=== PATIENT | female | born 1960 | race Caucasian/White ===

== ENCOUNTER 2022-05-16 23:22 | Emergency (ER) | payer MEDICAID ==
[2022-05-17] MEDS ORDERED: Ondansetron 4 MG/2 ML SDV IVPUSH ONE (00:06)
[2022-05-17] MEDS ORDERED: HYDROmorphone 1 MG/ML Syringe IVPUSH STA (00:06)
[2022-05-17] MEDS ORDERED: Sodium Chloride 0.9% 1,000 ML IV SCH (00:15)
[2022-05-17] MEDS ORDERED: Sodium Chloride 0.9% 10 ML Syringe FLUSH ONE (00:56)
[2022-05-17] MEDS ORDERED: Iopamidol 612 MG/ML 100 ML Bottle IVPUSH ONE (00:56)
[2022-05-17] MEDS ORDERED: Sodium Chloride 0.9% 1,000 ML IV ONE (00:57)
[2022-05-17] MEDS ORDERED: Lactulose Soln 10 GM/15 ML 30 ML UD Cup PO ONE (02:37)
== END 2022-05-17 03:00 | disposition home or self-care (01) ==
LOC: JD.ED 23:22
DX: K59.00 Constipation, unspecified (principal); N17.9 Acute kidney failure, unspecified; R94.4 Abnormal results of kidney function studies; E10.9 Type 1 diabetes mellitus without complications
CPT/HCPCS: 36415; 74177; 80053; 81001; 83690; 85025; 96361; 96374; 99284; A9270; J2405; J3490; J7030; Q9967

== ENCOUNTER 2022-06-07 14:28 | Emergency (ER) | payer MEDICAID ==
[2022-06-07] MEDS ORDERED: Sodium Chloride 0.9% 10 ML Syringe FLUSH PRN (15:08)
== END 2022-06-07 17:25 | disposition home or self-care (01) ==
LOC: JD.ED 14:28
DX: K21.9 Gastro-esophageal reflux disease without esophagitis (principal); E10.9 Type 1 diabetes mellitus without complications
CPT/HCPCS: 36415; 71046; 74019; 80053; 83880; 84484; 85025; 85379; 86140; 93005; 99285; J3490; 93010; 99284

== ENCOUNTER 2024-07-31 21:01 | Emergency (ER) | payer MEDICAID ==
[2024-07-31 21:41] LABS: BASOPHILS PERCENT AUTO 0.5 % (0.0-1.0); EOSINOPHILS ABSOLUTE AUTO 0.2 K/mm3 (0.0-0.4); EOSINOPHILS PERCENT AUTO 3.2 % (0.0-6.0); HEMATOCRIT 35.9 % (37.0-47.0); HEMOGLOBIN 11.8 gm/dl (12.0-16.0); IMMATURE GRAN ABSOLUTE AUTO 0.03 K/mm3 (0.00-0.05); IMMATURE GRAN PERCENT AUTO 0.5 % (0.0-0.4); LYMPHOCYTES ABSOLUTE AUTO 1.5 K/mm3 (1.0-4.8); LYMPHOCYTES PERCENT AUTO 22.3 % (24.0-44.0); MEAN CORPUSCULAR HEMOGLOBIN 30.9 pg (28.0-32.0); MEAN CORPUSCULAR HGB CONC 32.9 g/dl (32.0-36.0); MEAN PLATELET VOLUME 9.8 fl (9.4-12.3); MONOCYTES ABSOLUTE AUTO 0.6 K/mm3 (0.0-0.8); MONOCYTES PERCENT AUTO 9.2 % (0.0-8.0); NEUTROPHILS ABSOLUTE AUTO 4.2 K/mm3 (1.8-7.7); NEUTROPHILS PERCENT AUTO 64.3 % (41.0-71.0); PLATELET COUNT,PLT 309 K/mm3 (150-400); RED BLOOD CELL COUNT 3.82 M/mm3 (4.10-5.30)
[2024-07-31 22:12] LABS: ALBUMIN 3.4 g/dl (3.4-5.0); ANION GAP 13.3 (5-15); BILIRUBIN TOTAL 0.3 mg/dL (0.2-1.0); BUN/CREATININE RATIO 20.7 (14-18); CALCIUM 8.7 mg/dL (8.5-10.1); CREATININE 1.4 mg/dL (0.55-1.02); EST CRCL DRUG DOSING (CG) 29.16 mL/min; POTASSIUM,K 4.3 mEq/L (3.5-5.1); PROTEIN TOTAL,TP 6.8 g/dl (6.4-8.2)
[2024-07-31 22:36] LABS: APPEARANCE,URINE CLEAR (Clear); BILIRUBIN,URINE NEGATIVE (Negative); COLOR,URINE YELLOW (Yellow); GLUCOSE,URINE 2+ (Negative); KETONES,URINE NEGATIVE (Negative); LEUKOCYTE ESTERASE,URINE NEGATIVE (Negative); NITRITE,URINE NEGATIVE (Negative); OCCULT BLOOD,URINE TRACE-INTACT (Negative); PROTEIN,URINE NEGATIVE (Negative); UROBILINOGEN,URINE 0.2 (0.2-1.0)
[2024-07-31 22:46] LABS: BACTERIA,URINE FEW /hpf (FEW); MUCUS,URINE FEW /hpf (FEW); RBC,URINE 0-5 /hpf (0-5); SQUAMOUS EPITHELIAL CELLS,UR 0-5 /hpf (0-5); WBC,URINE 0-5 /hpf (0-5)
== END 2024-07-31 22:51 | disposition home or self-care (01) ==
LOC: JD.ED 21:01
DX: K59.00 Constipation, unspecified (principal); E10.9 Type 1 diabetes mellitus without complications
CPT/HCPCS: 36415; 74176; 74176-26; 80053; 81001; 85025; 99283; 99284

== ENCOUNTER 2025-01-20 16:14 | Emergency (ER) | payer MEDICAID ==
[2025-01-20] MEDS: Ofloxacin 0.3% Ophth Soln 5 ML Bottle EARBOTH ONE (17:03)
== END 2025-01-20 17:36 | disposition home or self-care (01) ==
LOC: JD.ED 16:14
DX: H60.93 Unspecified otitis externa, bilateral (principal); H66.93 Otitis media, unspecified, bilateral; E10.65 Type 1 diabetes mellitus with hyperglycemia; Z79.899 Other long term (current) drug therapy
CPT/HCPCS: 82947; 99283; A9270

== ENCOUNTER 2025-01-25 10:43 | Emergency (ER) | payer MEDICAID | END 2025-01-25 12:05 | disposition home or self-care (01) | LOC: JD.ED 10:43 | DX: K52.9 Noninfective gastroenteritis and colitis, unspecified (principal); H65.03 Acute serous otitis media, bilateral; H60.503 Unspecified acute noninfective otitis externa, bilateral; E10.9 Type 1 diabetes mellitus without complications; Z79.899 Other long term (current) drug therapy; Z79.84 Long term (current) use of oral hypoglycemic drugs | CPT/HCPCS: 74018; 74018-26; 99284 ==

== ENCOUNTER 2025-01-29 15:22 | Emergency (ER) | payer MEDICAID ==
[2025-01-29] MEDS: 50% Dextrose in Water 50 ML Syringe IVPUSH ONE (15:34)
[2025-01-29 16:51] LABS: BASOPHILS ABSOLUTE AUTO 0.1 K/mm3 (0.0-0.2); BASOPHILS PERCENT AUTO 0.4 % (0.0-1.0); EOSINOPHILS ABSOLUTE AUTO 0.1 K/mm3 (0.0-0.4); EOSINOPHILS PERCENT AUTO 0.7 % (0.0-6.0); IMMATURE GRAN ABSOLUTE AUTO 0.14 K/mm3 (0.00-0.05); IMMATURE GRAN PERCENT AUTO 1.0 % (0.0-0.4); LYMPHOCYTES ABSOLUTE AUTO 1.6 K/mm3 (1.0-4.8); LYMPHOCYTES PERCENT AUTO 11.4 % (24.0-44.0); MEAN PLATELET VOLUME 10.1 fl (9.4-12.3); MONOCYTES ABSOLUTE AUTO 0.9 K/mm3 (0.0-0.8); MONOCYTES PERCENT AUTO 6.4 % (0.0-8.0); NEUTROPHILS ABSOLUTE AUTO 11.4 K/mm3 (1.8-7.7); NEUTROPHILS PERCENT AUTO 80.1 % (41.0-71.0); NRBC ABSOLUTE 0.00 (0.00-0.02); NRBC PERCENT 0.0 % (0.0-0.2); PLATELET COUNT,PLT 352 K/mm3 (150-400); RED BLOOD CELL COUNT 4.35 M/mm3 (4.10-5.30); WHITE BLOOD CELL COUNT,WBC 14.27 K/mm3 (3.9-11.3)
[2025-01-29 17:09] LABS: A/G RATIO 1.0 (1-2); ALANINE AMINOTRANSFERASE,ALT 17 U/L (14-59); ASPARTATE AMNIOTRANSFERASE,AST 15 U/L (15-37); BILIRUBIN TOTAL 0.3 mg/dL (0.2-1.0); BLOOD UREA NITROGEN,BUN 45 mg/dL (7-18); CARBON DIOXIDE,CO2 20 mEq/L (21-32); CHLORIDE,CL 108 mEq/L (98-107); PROTEIN TOTAL,TP 7.7 g/dl (6.4-8.2); SODIUM,NA 144 mEq/L (136-145)
[2025-01-29 17:15] LABS: POTASSIUM,K 4.9 mEq/L (3.5-5.1)
[2025-01-29 17:21] LABS: CREATININE 3.4 mg/dL (0.55-1.02)
[2025-01-29 17:24] LABS: ESTIMATED GFR 14 mL/min (>60)
[2025-01-29 17:52] LABS: GLUCOSE RANDOM 45 mg/dL (70-99)
[2025-01-29 18:10] LABS: APPEARANCE,URINE CLEAR (Clear); GLUCOSE,URINE TRACE (Negative); OCCULT BLOOD,URINE NEGATIVE (Negative)
[2025-01-29 18:17] LABS: BUPRENORPHINE SCREEN,URINE NEGATIVE (CUTOFF=10); METHADONE SCREEN, URINE NEGATIVE (CUTOFF=200); METHAMPHETAMINES SCREEN, URINE NEGATIVE (CUTOFF=500); OXYCODONE SCREEN,URINE NEGATIVE (CUT0FF=100); THC SCREEN,URINE 20 NG/ML NEGATIVE (CUTOFF=50)
[2025-01-29 18:20] LABS: AMPHETAMINES SCREEN, URINE NEGATIVE (CUTOFF=500)
== END 2025-01-29 18:35 | disposition home or self-care (01) ==
LOC: JD.ED 15:22
DX: E10.649 Type 1 diabetes mellitus with hypoglycemia without coma (principal); Z79.84 Long term (current) use of oral hypoglycemic drugs; Z79.899 Other long term (current) drug therapy
CPT/HCPCS: 36415; 71045; 71045-26; 80053; 80306; 81001; 82947; 83690; 83735; 85025; 87086; 96374; 99284; 99285-25

== ENCOUNTER 2025-02-15 14:42 | Inpatient (IN) | payer MEDICAID ==
[2025-02-15 16:09] LABS: MEAN PLATELET VOLUME 9.9 fl (9.4-12.3); NRBC ABSOLUTE 0.00 (0.00-0.02); NRBC PERCENT 0.0 % (0.0-0.2); PLATELET COUNT,PLT 299 K/mm3 (150-400); RED BLOOD CELL COUNT 3.39 M/mm3 (4.10-5.30); WHITE BLOOD CELL COUNT,WBC 7.86 K/mm3 (3.9-11.3)
[2025-02-15 16:28] LABS: INR 0.97
[2025-02-15 16:31] LABS: A/G RATIO 0.9 (1-2); ALANINE AMINOTRANSFERASE,ALT 24.0 U/L (14-59); ASPARTATE AMNIOTRANSFERASE,AST 14.0 U/L (15-37); BILIRUBIN TOTAL 0.5 mg/dL (0.2-1.0); BLOOD UREA NITROGEN,BUN 39.0 mg/dL (7-18); CARBON DIOXIDE,CO2 26.0 mEq/L (21-32); CHLORIDE,CL 105.0 mEq/L (98-107); CREATININE 3.0 mg/dL (0.55-1.02); EST CRCL DRUG DOSING (CG) 13.43 mL/min; ESTIMATED GFR 17.0 mL/min (>60); GLUCOSE RANDOM 153.0 mg/dL (70-99); POTASSIUM,K 5.5 mEq/L (3.5-5.1); PROTEIN TOTAL,TP 7.3 g/dl (6.4-8.2); SODIUM,NA 144.0 mEq/L (136-145)
[2025-02-15] MEDS: Iopamidol 612 MG/ML 100 ML Bottle IVPUSH ONE (16:31)
[2025-02-15] MEDS: Sodium Chloride 0.9% 10 ML Syringe FLUSH ONE (16:31)
[2025-02-15] MEDS: cefTRIAXone 2 GM in Water For Injection, Sterile 20 ML IVPUSH ONE (16:47)
[2025-02-15 16:49] LABS: BAND PERCENT MAN 0 % (0-10); BASOPHILS PERCENT MAN 0 (0.1-1.2); EOSINOPHILS PERCENT MAN 1 % (0.7-5.8); LYMPHOCYTES PERCENT MAN 16 % (20-40); MONOCYTES PERCENT MAN 1 % (2-10); PLATELET COUNT ESTIMATE ADEQUATE
[2025-02-15 16:51] LABS: LACTIC ACID 3.6 mmol/L (0.4-2.0)
[2025-02-15] MEDS: Sodium Chloride 0.9% 10 ML Syringe FLUSH PRN (16:51)
[2025-02-15] MEDS: Ondansetron 4 MG/2 ML SDV IVPUSH ONE (18:42)
[2025-02-15 19:39] LABS: BLOOD UREA NITROGEN,BUN 38.0 mg/dL (7-18); CARBON DIOXIDE,CO2 22.0 mEq/L (21-32); CHLORIDE,CL 106.0 mEq/L (98-107); CREATININE 2.8 mg/dL (0.55-1.02); EST CRCL DRUG DOSING (CG) 14.39 mL/min; ESTIMATED GFR 18.0 mL/min (>60); GLUCOSE RANDOM 180.0 mg/dL (70-99); POTASSIUM,K 5.1 mEq/L (3.5-5.1); SODIUM,NA 140.0 mEq/L (136-145)
[2025-02-15] MEDS: Insulin Regular, Human 100 Units/ML 10 ML Vial IV ONE (20:19)
[2025-02-15] MEDS: 50% Dextrose in Water 50 ML Syringe IVPUSH ONE (20:24)
[2025-02-15] MEDS: Insulin Lispro 100 Unit/ML 3 ML KwikPen SUBCUT SCH (21:47)
[2025-02-15] MEDS: Cefepime 2 GM in Water For Injection, Sterile 20 ML IVPUSH SCH (21:49)
[2025-02-15 22:27] LABS: LACTIC ACID 1.4 mmol/L (0.4-2.0)
[2025-02-16 05:37] LABS: BASOPHILS ABSOLUTE AUTO 0.0 K/mm3 (0.0-0.2); BASOPHILS PERCENT AUTO 0.2 % (0.0-1.0); EOSINOPHILS ABSOLUTE AUTO 0.2 K/mm3 (0.0-0.4); EOSINOPHILS PERCENT AUTO 3.5 % (0.0-6.0); IMMATURE GRAN ABSOLUTE AUTO 0.03 K/mm3 (0.00-0.05); IMMATURE GRAN PERCENT AUTO 0.5 % (0.0-0.4); LYMPHOCYTES ABSOLUTE AUTO 1.1 K/mm3 (1.0-4.8); LYMPHOCYTES PERCENT AUTO 20.0 % (24.0-44.0); MEAN PLATELET VOLUME 10.1 fl (9.4-12.3); MONOCYTES ABSOLUTE AUTO 0.5 K/mm3 (0.0-0.8); MONOCYTES PERCENT AUTO 9.8 % (0.0-8.0); NEUTROPHILS ABSOLUTE AUTO 3.6 K/mm3 (1.8-7.7); NEUTROPHILS PERCENT AUTO 66.0 % (41.0-71.0); NRBC ABSOLUTE 0.00 (0.00-0.02); NRBC PERCENT 0.0 % (0.0-0.2); PLATELET COUNT,PLT 286 K/mm3 (150-400); RED BLOOD CELL COUNT 3.04 M/mm3 (4.10-5.30); WHITE BLOOD CELL COUNT,WBC 5.49 K/mm3 (3.9-11.3)
[2025-02-16 06:16] LABS: CREATINE KINASE,CK 58.0 U/L (26-192)
[2025-02-16 08:00] LABS: BLOOD UREA NITROGEN,BUN 38.0 mg/dL (7-18); CARBON DIOXIDE,CO2 23.0 mEq/L (21-32); CHLORIDE,CL 109.0 mEq/L (98-107); CREATININE 2.8 mg/dL (0.55-1.02); EST CRCL DRUG DOSING (CG) 14.39 mL/min; ESTIMATED GFR 18.0 mL/min (>60); GLUCOSE RANDOM 89.0 mg/dL (70-99); POTASSIUM,K 4.7 mEq/L (3.5-5.1); SODIUM,NA 143.0 mEq/L (136-145)
[2025-02-16 08:14] LABS: APPEARANCE,URINE CLEAR (Clear); GLUCOSE,URINE NEGATIVE (Negative); OCCULT BLOOD,URINE NEGATIVE (Negative)
[2025-02-16 08:23] LABS: SQUAMOUS EPITHELIAL CELLS,UR 0-5 /hpf (0-5)
[2025-02-16] MEDS: Ondansetron 4 MG Tab.DIS PO PRN (15:29)
[2025-02-16] MEDS ORDERED: cefTRIAXone 2 GM in Water For Injection, Sterile 20 ML IVPUSH SCH (16:00)
[2025-02-17 05:38] LABS: BASOPHILS ABSOLUTE AUTO 0.0 K/mm3 (0.0-0.2); BASOPHILS PERCENT AUTO 0.4 % (0.0-1.0); EOSINOPHILS ABSOLUTE AUTO 0.2 K/mm3 (0.0-0.4); EOSINOPHILS PERCENT AUTO 3.8 % (0.0-6.0); IMMATURE GRAN ABSOLUTE AUTO 0.03 K/mm3 (0.00-0.05); IMMATURE GRAN PERCENT AUTO 0.5 % (0.0-0.4); LYMPHOCYTES ABSOLUTE AUTO 0.8 K/mm3 (1.0-4.8); LYMPHOCYTES PERCENT AUTO 14.8 % (24.0-44.0); MEAN PLATELET VOLUME 10.2 fl (9.4-12.3); MONOCYTES ABSOLUTE AUTO 0.6 K/mm3 (0.0-0.8); MONOCYTES PERCENT AUTO 10.1 % (0.0-8.0); NEUTROPHILS ABSOLUTE AUTO 3.9 K/mm3 (1.8-7.7); NEUTROPHILS PERCENT AUTO 70.4 % (41.0-71.0); NRBC ABSOLUTE 0.00 (0.00-0.02); NRBC PERCENT 0.0 % (0.0-0.2); PLATELET COUNT,PLT 282 K/mm3 (150-400); RED BLOOD CELL COUNT 3.09 M/mm3 (4.10-5.30); WHITE BLOOD CELL COUNT,WBC 5.54 K/mm3 (3.9-11.3)
[2025-02-17 05:58] LABS: VANCOMYCIN RANDOM 14.2 ug/mL
[2025-02-17 08:02] LABS: A/G RATIO 0.9 (1-2); ALANINE AMINOTRANSFERASE,ALT 22.0 U/L (14-59); ASPARTATE AMNIOTRANSFERASE,AST 20.0 U/L (15-37); BILIRUBIN TOTAL 0.4 mg/dL (0.2-1.0); BLOOD UREA NITROGEN,BUN 30.0 mg/dL (7-18); CARBON DIOXIDE,CO2 24.0 mEq/L (21-32); CHLORIDE,CL 109.0 mEq/L (98-107); CREATININE 2.7 mg/dL (0.55-1.02); EST CRCL DRUG DOSING (CG) 14.92 mL/min; ESTIMATED GFR 19.0 mL/min (>60); GLUCOSE RANDOM 205.0 mg/dL (70-99); POTASSIUM,K 4.6 mEq/L (3.5-5.1); PROTEIN TOTAL,TP 6.4 g/dl (6.4-8.2); SODIUM,NA 143.0 mEq/L (136-145)
[2025-02-17] MEDS: VANCOmycin 750 MG/150 ML 750 MG in Premix Bag 1 BAG IV ONE (15:04)
[2025-02-18 05:34] LABS: BASOPHILS ABSOLUTE AUTO 0.0 K/mm3 (0.0-0.2); BASOPHILS PERCENT AUTO 0.5 % (0.0-1.0); EOSINOPHILS ABSOLUTE AUTO 0.2 K/mm3 (0.0-0.4); EOSINOPHILS PERCENT AUTO 3.8 % (0.0-6.0); IMMATURE GRAN ABSOLUTE AUTO 0.03 K/mm3 (0.00-0.05); IMMATURE GRAN PERCENT AUTO 0.5 % (0.0-0.4); LYMPHOCYTES ABSOLUTE AUTO 1.0 K/mm3 (1.0-4.8); LYMPHOCYTES PERCENT AUTO 16.9 % (24.0-44.0); MEAN PLATELET VOLUME 10.2 fl (9.4-12.3); MONOCYTES ABSOLUTE AUTO 0.6 K/mm3 (0.0-0.8); MONOCYTES PERCENT AUTO 10.6 % (0.0-8.0); NEUTROPHILS ABSOLUTE AUTO 4.1 K/mm3 (1.8-7.7); NEUTROPHILS PERCENT AUTO 67.7 % (41.0-71.0); NRBC ABSOLUTE 0.00 (0.00-0.02); NRBC PERCENT 0.0 % (0.0-0.2); PLATELET COUNT,PLT 304 K/mm3 (150-400); RED BLOOD CELL COUNT 3.16 M/mm3 (4.10-5.30); WHITE BLOOD CELL COUNT,WBC 6.05 K/mm3 (3.9-11.3)
[2025-02-18 05:55] LABS: A/G RATIO 0.9 (1-2); ALANINE AMINOTRANSFERASE,ALT 24.0 U/L (14-59); ASPARTATE AMNIOTRANSFERASE,AST 19.0 U/L (15-37); BILIRUBIN TOTAL 0.6 mg/dL (0.2-1.0); BLOOD UREA NITROGEN,BUN 23.0 mg/dL (7-18); CARBON DIOXIDE,CO2 23.0 mEq/L (21-32); CHLORIDE,CL 107.0 mEq/L (98-107); CREATININE 2.5 mg/dL (0.55-1.02); EST CRCL DRUG DOSING (CG) 16.11 mL/min; ESTIMATED GFR 21.0 mL/min (>60); GLUCOSE RANDOM 223.0 mg/dL (70-99); POTASSIUM,K 4.2 mEq/L (3.5-5.1); PROTEIN TOTAL,TP 6.9 g/dl (6.4-8.2); SODIUM,NA 145.0 mEq/L (136-145); VANCOMYCIN RANDOM 20.3 ug/mL
[2025-02-19 07:25] LABS: BASOPHILS ABSOLUTE AUTO 0.0 K/mm3 (0.0-0.2); BASOPHILS PERCENT AUTO 0.2 % (0.0-1.0); EOSINOPHILS ABSOLUTE AUTO 0.1 K/mm3 (0.0-0.4); EOSINOPHILS PERCENT AUTO 0.7 % (0.0-6.0); IMMATURE GRAN ABSOLUTE AUTO 0.05 K/mm3 (0.00-0.05); IMMATURE GRAN PERCENT AUTO 0.5 % (0.0-0.4); LYMPHOCYTES ABSOLUTE AUTO 1.0 K/mm3 (1.0-4.8); LYMPHOCYTES PERCENT AUTO 10.9 % (24.0-44.0); MEAN PLATELET VOLUME 10.2 fl (9.4-12.3); MONOCYTES ABSOLUTE AUTO 0.6 K/mm3 (0.0-0.8); MONOCYTES PERCENT AUTO 6.4 % (0.0-8.0); NEUTROPHILS ABSOLUTE AUTO 7.4 K/mm3 (1.8-7.7); NEUTROPHILS PERCENT AUTO 81.3 % (41.0-71.0); NRBC ABSOLUTE 0.00 (0.00-0.02); NRBC PERCENT 0.0 % (0.0-0.2); PLATELET COUNT,PLT 321 K/mm3 (150-400); RED BLOOD CELL COUNT 3.49 M/mm3 (4.10-5.30); WHITE BLOOD CELL COUNT,WBC 9.12 K/mm3 (3.9-11.3)
[2025-02-19 07:44] LABS: A/G RATIO 0.9 (1-2); ALANINE AMINOTRANSFERASE,ALT 35.0 U/L (14-59); ASPARTATE AMNIOTRANSFERASE,AST 20.0 U/L (15-37); BILIRUBIN TOTAL 0.6 mg/dL (0.2-1.0); BLOOD UREA NITROGEN,BUN 22.0 mg/dL (7-18); CARBON DIOXIDE,CO2 22.0 mEq/L (21-32); CHLORIDE,CL 107.0 mEq/L (98-107); CREATININE 2.7 mg/dL (0.55-1.02); EST CRCL DRUG DOSING (CG) 14.92 mL/min; ESTIMATED GFR 19.0 mL/min (>60); GLUCOSE RANDOM 262.0 mg/dL (70-99); POTASSIUM,K 5.5 mEq/L (3.5-5.1); PROTEIN TOTAL,TP 7.8 g/dl (6.4-8.2); SODIUM,NA 148.0 mEq/L (136-145); VANCOMYCIN RANDOM 23.2 ug/mL
[2025-02-19] MEDS: LORazepam 2 MG/ML SDV IVPUSH ONE ×2 (09:32→14:51)
[2025-02-19] MEDS ORDERED: Ofloxacin 0.3% Ophth Soln 5 ML Bottle EARBOTH SCH (09:45)
[2025-02-19] MEDS: Insulin Regular, Human 100 Units/ML 10 ML Vial IV ONE (10:20)
[2025-02-19] MEDS: 50% Dextrose in Water 50 ML Syringe IVPUSH ONE (10:21)
[2025-02-19 11:33] LABS: SODIUM,NA 144.0 mEq/L (136-145)
[2025-02-19] MEDS: Ofloxacin 0.3% Ophth Soln 5 ML Bottle EARBOTH SCH (11:48)
[2025-02-19 12:06] LABS: POTASSIUM,K 3.6 mEq/L (3.5-5.1)
[2025-02-19] MEDS ORDERED: Naloxone 0.4 MG/ML SDV IVPUSH PRN (15:00)
[2025-02-19] MEDS ORDERED: LORazepam 2 MG/ML SDV IVPUSH PRN (15:09)
[2025-02-19] MEDS: LORazepam 2 MG/ML SDV ONE (16:14)
[2025-02-19 18:15] LABS: HIV RAPID SCREEN RLFX COMFIRM NON-REACTIVE (Non-React)
[2025-02-19 18:16] LABS: HEPATITIS C AB NON-REACTIVE (Non-React)
[2025-02-19] MEDS: LORazepam 2 MG/ML SDV IVPUSH PRN (20:04)
[2025-02-19] MEDS: Insulin Glargine,Human Rec. Analog 100 Units/ML 3 ML Pen SUBCUT SCH (21:13)
[2025-02-20 05:00] LABS: A/G RATIO 0.8 (1-2); ALANINE AMINOTRANSFERASE,ALT 30.0 U/L (14-59); ASPARTATE AMNIOTRANSFERASE,AST 18.0 U/L (15-37); BILIRUBIN TOTAL 0.5 mg/dL (0.2-1.0); BLOOD UREA NITROGEN,BUN 25.0 mg/dL (7-18); CARBON DIOXIDE,CO2 24.0 mEq/L (21-32); CHLORIDE,CL 109.0 mEq/L (98-107); CREATININE 2.1 mg/dL (0.55-1.02); EST CRCL DRUG DOSING (CG) 19.18 mL/min; ESTIMATED GFR 26.0 mL/min (>60); GLUCOSE RANDOM 297.0 mg/dL (70-99); POTASSIUM,K 3.6 mEq/L (3.5-5.1); PROTEIN TOTAL,TP 6.6 g/dl (6.4-8.2); SODIUM,NA 145.0 mEq/L (136-145)
[2025-02-20 05:21] LABS: VANCOMYCIN RANDOM 12.7 ug/mL
[2025-02-20 07:44] LABS: BASOPHILS ABSOLUTE AUTO 0.0 K/mm3 (0.0-0.2); BASOPHILS PERCENT AUTO 0.6 % (0.0-1.0); EOSINOPHILS ABSOLUTE AUTO 0.2 K/mm3 (0.0-0.4); EOSINOPHILS PERCENT AUTO 3.6 % (0.0-6.0); IMMATURE GRAN ABSOLUTE AUTO 0.03 K/mm3 (0.00-0.05); IMMATURE GRAN PERCENT AUTO 0.6 % (0.0-0.4); LYMPHOCYTES ABSOLUTE AUTO 1.0 K/mm3 (1.0-4.8); LYMPHOCYTES PERCENT AUTO 18.4 % (24.0-44.0); MEAN PLATELET VOLUME 10.0 fl (9.4-12.3); MONOCYTES ABSOLUTE AUTO 0.7 K/mm3 (0.0-0.8); MONOCYTES PERCENT AUTO 12.6 % (0.0-8.0); NEUTROPHILS ABSOLUTE AUTO 3.4 K/mm3 (1.8-7.7); NEUTROPHILS PERCENT AUTO 64.2 % (41.0-71.0); NRBC ABSOLUTE 0.00 (0.00-0.02); NRBC PERCENT 0.0 % (0.0-0.2); PLATELET COUNT,PLT 250 K/mm3 (150-400); RED BLOOD CELL COUNT 3.26 M/mm3 (4.10-5.30); WHITE BLOOD CELL COUNT,WBC 5.22 K/mm3 (3.9-11.3)
[2025-02-20 10:21] LABS: APPEARANCE,URINE CLEAR (Clear); GLUCOSE,URINE 2+ (Negative); OCCULT BLOOD,URINE 1+ (Negative)
[2025-02-20 11:11] LABS: SQUAMOUS EPITHELIAL CELLS,UR 0-5 /hpf (0-5)
[2025-02-20 13:33] LABS: CHOLESTEROL HDL 68.0 mg/dL (40-59); CHOLESTEROL LDL DIRECT 37.0 mg/dL (<100); CHOLESTEROL TOTAL 115.0 mg/dL (<200); TROPONIN I HIGH SENSITIVITY 22.0 pg/mL (<=51); TSH 1.998 uIU/mL (0.358-3.74)
[2025-02-20 14:17] LABS: FOLIC ACID 16.7 ng/mL (8.6-58.9)
[2025-02-21 07:58] LABS: BASOPHILS ABSOLUTE AUTO 0.0 K/mm3 (0.0-0.2); BASOPHILS PERCENT AUTO 0.5 % (0.0-1.0); EOSINOPHILS ABSOLUTE AUTO 0.2 K/mm3 (0.0-0.4); EOSINOPHILS PERCENT AUTO 3.9 % (0.0-6.0); IMMATURE GRAN ABSOLUTE AUTO 0.04 K/mm3 (0.00-0.05); IMMATURE GRAN PERCENT AUTO 0.7 % (0.0-0.4); LYMPHOCYTES ABSOLUTE AUTO 1.1 K/mm3 (1.0-4.8); LYMPHOCYTES PERCENT AUTO 18.0 % (24.0-44.0); MEAN PLATELET VOLUME 10.2 fl (9.4-12.3); MONOCYTES ABSOLUTE AUTO 0.7 K/mm3 (0.0-0.8); MONOCYTES PERCENT AUTO 12.3 % (0.0-8.0); NEUTROPHILS ABSOLUTE AUTO 3.8 K/mm3 (1.8-7.7); NEUTROPHILS PERCENT AUTO 64.6 % (41.0-71.0); NRBC ABSOLUTE 0.00 (0.00-0.02); NRBC PERCENT 0.0 % (0.0-0.2); PLATELET COUNT,PLT 276 K/mm3 (150-400); RED BLOOD CELL COUNT 3.17 M/mm3 (4.10-5.30); WHITE BLOOD CELL COUNT,WBC 5.84 K/mm3 (3.9-11.3)
[2025-02-21 08:21] LABS: A/G RATIO 0.9 (1-2); ALANINE AMINOTRANSFERASE,ALT 33.0 U/L (14-59); ASPARTATE AMNIOTRANSFERASE,AST 21.0 U/L (15-37); BILIRUBIN TOTAL 0.4 mg/dL (0.2-1.0); BLOOD UREA NITROGEN,BUN 23.0 mg/dL (7-18); CARBON DIOXIDE,CO2 25.0 mEq/L (21-32); CHLORIDE,CL 112.0 mEq/L (98-107); CREATININE 2.1 mg/dL (0.55-1.02); EST CRCL DRUG DOSING (CG) 19.18 mL/min; ESTIMATED GFR 26.0 mL/min (>60); GLUCOSE RANDOM 144.0 mg/dL (70-99); POTASSIUM,K 3.7 mEq/L (3.5-5.1); PROTEIN TOTAL,TP 6.5 g/dl (6.4-8.2); SODIUM,NA 148.0 mEq/L (136-145)
[2025-02-21 13:48] LABS: HEP B SURFACE AG Negative (Negative)
[2025-02-21] MEDS: metroNIDAZOLE/Normal Saline 500 MG in Premix Bag 1 BAG IV SCH (14:42)
[2025-02-21] MEDS: Insulin Glargine,Human Rec. Analog 100 Units/ML 3 ML Pen SUBCUT SCH (20:03)
[2025-02-21] MEDS: Sodium Chloride 0.9% 10 ML Syringe FLUSH SCH (23:30)
[2025-02-22] MEDS ORDERED: Sodium Chloride 0.9% 10 ML Syringe FLUSH PRN (00:01)
[2025-02-22] MEDS: Lactated Ringers 1,000 ML IV SCH (04:00)
[2025-02-22 04:39] LABS: BASOPHILS ABSOLUTE AUTO 0.0 K/mm3 (0.0-0.2); BASOPHILS PERCENT AUTO 0.4 % (0.0-1.0); EOSINOPHILS ABSOLUTE AUTO 0.2 K/mm3 (0.0-0.4); EOSINOPHILS PERCENT AUTO 4.1 % (0.0-6.0); IMMATURE GRAN ABSOLUTE AUTO 0.04 K/mm3 (0.00-0.05); IMMATURE GRAN PERCENT AUTO 0.8 % (0.0-0.4); LYMPHOCYTES ABSOLUTE AUTO 1.1 K/mm3 (1.0-4.8); LYMPHOCYTES PERCENT AUTO 22.7 % (24.0-44.0); MEAN PLATELET VOLUME 10.3 fl (9.4-12.3); MONOCYTES ABSOLUTE AUTO 0.7 K/mm3 (0.0-0.8); MONOCYTES PERCENT AUTO 13.3 % (0.0-8.0); NEUTROPHILS ABSOLUTE AUTO 2.9 K/mm3 (1.8-7.7); NEUTROPHILS PERCENT AUTO 58.7 % (41.0-71.0); NRBC ABSOLUTE 0.00 (0.00-0.02); NRBC PERCENT 0.0 % (0.0-0.2); PLATELET COUNT,PLT 251 K/mm3 (150-400); RED BLOOD CELL COUNT 2.97 M/mm3 (4.10-5.30); WHITE BLOOD CELL COUNT,WBC 4.88 K/mm3 (3.9-11.3)
[2025-02-22 05:13] LABS: A/G RATIO 0.8 (1-2); ALANINE AMINOTRANSFERASE,ALT 27.0 U/L (14-59); ASPARTATE AMNIOTRANSFERASE,AST 18.0 U/L (15-37); BILIRUBIN TOTAL 0.4 mg/dL (0.2-1.0); BLOOD UREA NITROGEN,BUN 23.0 mg/dL (7-18); CARBON DIOXIDE,CO2 25.0 mEq/L (21-32); CHLORIDE,CL 110.0 mEq/L (98-107); CREATININE 1.8 mg/dL (0.55-1.02); EST CRCL DRUG DOSING (CG) 22.38 mL/min; ESTIMATED GFR 31.0 mL/min (>60); GLUCOSE RANDOM 111.0 mg/dL (70-99); POTASSIUM,K 3.3 mEq/L (3.5-5.1); PROTEIN TOTAL,TP 6.2 g/dl (6.4-8.2); SODIUM,NA 146.0 mEq/L (136-145)
[2025-02-22] MEDS ORDERED: Propofol 200 MG/20 ML SDV ONE (08:00)
[2025-02-22] MEDS: Gadobenate Dimeglumine 529 MG/ML 15 ML SDV IVPUSH ONE (12:51)
[2025-02-22] MEDS: Sodium Chloride 0.9% 10 ML Syringe FLUSH SCH (12:52)
[2025-02-22] MEDS: Potassium Chloride 20 MEQ Tab.ER PO ONE ×2 (13:52→13:57)
[2025-02-23 08:09] LABS: BASOPHILS ABSOLUTE AUTO 0.0 K/mm3 (0.0-0.2); BASOPHILS PERCENT AUTO 0.7 % (0.0-1.0); EOSINOPHILS ABSOLUTE AUTO 0.2 K/mm3 (0.0-0.4); EOSINOPHILS PERCENT AUTO 3.8 % (0.0-6.0); IMMATURE GRAN ABSOLUTE AUTO 0.05 K/mm3 (0.00-0.05); IMMATURE GRAN PERCENT AUTO 1.1 % (0.0-0.4); LYMPHOCYTES ABSOLUTE AUTO 1.1 K/mm3 (1.0-4.8); LYMPHOCYTES PERCENT AUTO 24.1 % (24.0-44.0); MEAN PLATELET VOLUME 10.0 fl (9.4-12.3); MONOCYTES ABSOLUTE AUTO 0.5 K/mm3 (0.0-0.8); MONOCYTES PERCENT AUTO 11.9 % (0.0-8.0); NEUTROPHILS ABSOLUTE AUTO 2.7 K/mm3 (1.8-7.7); NEUTROPHILS PERCENT AUTO 58.4 % (41.0-71.0); NRBC ABSOLUTE 0.00 (0.00-0.02); NRBC PERCENT 0.0 % (0.0-0.2); PLATELET COUNT,PLT 297 K/mm3 (150-400); RED BLOOD CELL COUNT 3.30 M/mm3 (4.10-5.30); WHITE BLOOD CELL COUNT,WBC 4.53 K/mm3 (3.9-11.3)
[2025-02-23 08:29] LABS: A/G RATIO 0.9 (1-2); ALANINE AMINOTRANSFERASE,ALT 31.0 U/L (14-59); ASPARTATE AMNIOTRANSFERASE,AST 23.0 U/L (15-37); BILIRUBIN TOTAL 0.4 mg/dL (0.2-1.0); BLOOD UREA NITROGEN,BUN 24.0 mg/dL (7-18); CARBON DIOXIDE,CO2 29.0 mEq/L (21-32); CHLORIDE,CL 106.0 mEq/L (98-107); CREATININE 1.9 mg/dL (0.55-1.02); EST CRCL DRUG DOSING (CG) 21.2 mL/min; ESTIMATED GFR 29.0 mL/min (>60); GLUCOSE RANDOM 207.0 mg/dL (70-99); POTASSIUM,K 4.1 mEq/L (3.5-5.1); PROTEIN TOTAL,TP 6.9 g/dl (6.4-8.2); SODIUM,NA 143.0 mEq/L (136-145)
[2025-02-23] MEDS: Insulin Glargine,Human Rec. Analog 100 Units/ML 3 ML Pen SUBCUT SCH (21:12)
[2025-02-24 10:02] LABS: BLOOD UREA NITROGEN,BUN 29.0 mg/dL (7-18); CARBON DIOXIDE,CO2 30.0 mEq/L (21-32); CHLORIDE,CL 104.0 mEq/L (98-107); CREATININE 1.8 mg/dL (0.55-1.02); EST CRCL DRUG DOSING (CG) 22.38 mL/min; ESTIMATED GFR 31.0 mL/min (>60); GLUCOSE RANDOM 243.0 mg/dL (70-99); POTASSIUM,K 4.1 mEq/L (3.5-5.1); SODIUM,NA 141.0 mEq/L (136-145)
[2025-02-25 07:59] LABS: BLOOD UREA NITROGEN,BUN 32.0 mg/dL (7-18); CARBON DIOXIDE,CO2 31.0 mEq/L (21-32); CHLORIDE,CL 108.0 mEq/L (98-107); CREATININE 1.6 mg/dL (0.55-1.02); EST CRCL DRUG DOSING (CG) 25.18 mL/min; ESTIMATED GFR 36.0 mL/min (>60); GLUCOSE RANDOM 89.0 mg/dL (70-99); POTASSIUM,K 4.5 mEq/L (3.5-5.1); SODIUM,NA 145.0 mEq/L (136-145)
[2025-02-25] MEDS: Fluticasone NASAL Spray 16 GM Bottle NASBOTH SCH (08:24)
[2025-02-26 07:00] LABS: BASOPHILS ABSOLUTE AUTO 0.0 K/mm3 (0.0-0.2); BASOPHILS PERCENT AUTO 0.8 % (0.0-1.0); EOSINOPHILS ABSOLUTE AUTO 0.2 K/mm3 (0.0-0.4); EOSINOPHILS PERCENT AUTO 3.1 % (0.0-6.0); IMMATURE GRAN ABSOLUTE AUTO 0.10 K/mm3 (0.00-0.05); IMMATURE GRAN PERCENT AUTO 1.9 % (0.0-0.4); LYMPHOCYTES ABSOLUTE AUTO 1.1 K/mm3 (1.0-4.8); LYMPHOCYTES PERCENT AUTO 21.3 % (24.0-44.0); MEAN PLATELET VOLUME 9.8 fl (9.4-12.3); MONOCYTES ABSOLUTE AUTO 0.8 K/mm3 (0.0-0.8); MONOCYTES PERCENT AUTO 14.9 % (0.0-8.0); NEUTROPHILS ABSOLUTE AUTO 3.0 K/mm3 (1.8-7.7); NEUTROPHILS PERCENT AUTO 58.0 % (41.0-71.0); NRBC ABSOLUTE 0.00 (0.00-0.02); NRBC PERCENT 0.0 % (0.0-0.2); PLATELET COUNT,PLT 253 K/mm3 (150-400); RED BLOOD CELL COUNT 3.00 M/mm3 (4.10-5.30); WHITE BLOOD CELL COUNT,WBC 5.16 K/mm3 (3.9-11.3)
[2025-02-26 07:55] LABS: A/G RATIO 0.9 (1-2); ALANINE AMINOTRANSFERASE,ALT 118.0 U/L (14-59); ASPARTATE AMNIOTRANSFERASE,AST 113.0 U/L (15-37); BILIRUBIN TOTAL 0.3 mg/dL (0.2-1.0); BLOOD UREA NITROGEN,BUN 37.0 mg/dL (7-18); CARBON DIOXIDE,CO2 31.0 mEq/L (21-32); CHLORIDE,CL 107.0 mEq/L (98-107); CREATININE 1.7 mg/dL (0.55-1.02); EST CRCL DRUG DOSING (CG) 23.7 mL/min; ESTIMATED GFR 33.0 mL/min (>60); GLUCOSE RANDOM 106.0 mg/dL (70-99); POTASSIUM,K 4.9 mEq/L (3.5-5.1); PROTEIN TOTAL,TP 6.1 g/dl (6.4-8.2); SODIUM,NA 144.0 mEq/L (136-145)
[2025-03-01 08:09] LABS: BLOOD UREA NITROGEN,BUN 41.0 mg/dL (7-18); CARBON DIOXIDE,CO2 28.0 mEq/L (21-32); CHLORIDE,CL 107.0 mEq/L (98-107); CREATININE 1.7 mg/dL (0.55-1.02); EST CRCL DRUG DOSING (CG) 23.7 mL/min; ESTIMATED GFR 33.0 mL/min (>60); GLUCOSE RANDOM 84.0 mg/dL (70-99); POTASSIUM,K 4.9 mEq/L (3.5-5.1); SODIUM,NA 142.0 mEq/L (136-145); VANCOMYCIN RANDOM 15.2 ug/mL
== END 2025-03-02 14:34 | disposition home or self-care (01) | DRG 153 ==
LOC: JD.ED 14:42 → JD.MS 18:39 → JD.ICU 02-19 16:20 → JD.MS 02-26 14:50
PROVIDERS: ADMIT Family Medicine; ATTEND Family Medicine
PROC: 05HY33Z Insertion of Infusion Device into Upper Vein, Percutaneous Approach (ICD-10-PCS; principal; 2025-02-15)
DX: H70.09 Acute mastoiditis with other complications (principal); G93.40 Encephalopathy, unspecified; E87.0 Hyperosmolality and hypernatremia; F03.94 Unspecified dementia, unspecified severity, with anxiety; E87.20 Acidosis, unspecified; N17.9 Acute kidney failure, unspecified; F03.93 Unspecified dementia, unspecified severity, with mood disturbance; I67.6 Nonpyogenic thrombosis of intracranial venous system; H83.09 Labyrinthitis, unspecified ear; H91.90 Unspecified hearing loss, unspecified ear; K52.9 Noninfective gastroenteritis and colitis, unspecified; N18.32 Chronic kidney disease, stage 3b; E87.5 Hyperkalemia; H54.7 Unspecified visual loss; H60.503 Unspecified acute noninfective otitis externa, bilateral; E86.0 Dehydration; I12.9 Hypertensive chronic kidney disease with stage 1 through stage 4 chronic kidney disease, or unspecified chronic kidney disease; E11.22 Type 2 diabetes mellitus with diabetic chronic kidney disease; N20.0 Calculus of kidney; Z98.890 Other specified postprocedural states; N18.9 Chronic kidney disease, unspecified; Z79.84 Long term (current) use of oral hypoglycemic drugs; E10.9 Type 1 diabetes mellitus without complications; Z79.899 Other long term (current) drug therapy
CPT/HCPCS: 36415; 70486; 74177; 80053; 82550; 83036; 83605; 83690; 85007; 85027; 85610; 85652; 86140; 87040 ×2; 87045; 87046 ×3; 87076; 87077; 87493 ×2; 87899 ×2; 96361; 96374; 99285; A4216; J0696; J7030; Q9967; 36569; 51702; 70450; 70450-26; 70553; 70553-26; 71045; 71045-26; 80048; 80061; 80202; 81001; 82140; 82533; 82607; 82746; 82947; 84132; 84295; 84443; 84484; 85025; 85379; 86803; 87070; 87075; 87102; 87186; 87205; 87338; 87340; 87641; 87798; 97110-GO; 97110-GP; 97112-GP; 97116-GP; 97162-GP; 97166-GO; 97530-GO; 97530-GP; 97535-GO; 99211; 99284; A9270-GY; A9577; G0433; J0692; J1171; J1630; J1650; J1815-GY; J1836; J2060; J2270; J2405; J2704; J2765; J3373; J3375; J3490; J7050; J7070; J7120